=== PATIENT | female | born 1975 | race African-American/Black ===

== ENCOUNTER → 2016-09-26 | Outpatient (CLI) | payer BC ==
[2016-09-26 12:10] LABS: HEMATOCRIT 36.6 % (36.0-47.0); HEMOGLOBIN 11.5 g/dL (12.0-15.5); HGB HCT DIFFERENCE -2.1; MEAN CORPUSCULAR HEMOGLOBIN 24.2 pg (27.0-33.4); MEAN CORPUSCULAR HGB CONC 31.4 g/dL (32.0-36.0); MEAN CORPUSCULAR VOLUME 77 fl (80-97); RED BLOOD COUNT 4.75 10^6/uL (3.72-5.28); RED CELL DISTRIBUTION WIDTH 16.4 % (11.5-14.0); WHITE BLOOD COUNT 6.7 10^3/uL (4.0-10.5)
[2016-09-26 12:30] LABS: ANION GAP 10 (5-19); BLOOD UREA NITROGEN 20 mg/dL (7-20); CALCIUM 9.8 mg/dL (8.4-10.2); CARBON DIOXIDE 25 mmol/L (22-30); CHLORIDE 107 mmol/L (98-107); CREATININE RESULT 0.81 mg/dL (0.52-1.25); GLUCOSE 129 mg/dL (75-110); POTASSIUM 4.6 mmol/L (3.6-5.0)
== END ==
LOC: OD 10:58
PROVIDERS: ATTEND Physician Assistant Surgical
DX: K57.32 Diverticulitis of large intestine without perforation or abscess without bleeding (principal); R10.32 Left lower quadrant pain
CPT/HCPCS: 36415; 80048; 85027

== ENCOUNTER → 2016-09-29 | Outpatient (CLI) | payer BC ==
--- NOTE | 2016-09-29 11:57 | RADIOLOGY REPORT (SQ) ---
EXAM DESCRIPTION: CT ABD/PELVIS ORAL ONLY COMPLETED DATE/TIME: 09/29/2016 10:00 am REASON FOR STUDY: LLQ PAIN/NAUSEA WITH VOMITING/DIVERTICULITIS OF LARGE INTESTINE WITHOUT PER K57.32 DVTRCLI OF LG INT W/O PERFORATION OR ABSCESS W/O BLEE R10.32 LEFT LOWER QUADRANT PAIN R11.2 NAUSE A WITH VOMITING, UNSPECIFIED COMPARISON: None. TECHNIQUE: CT scan of the abdomen and pelvis performed without intravenous contrast. Patient drank oral contrast Images reviewed with lung, soft tissue, and bone windows. Reconstructed coronal and sagittal MPR imag es reviewed. All images stored on PACS. All CT scanners at this facility use dose modulation, iterative reconstruction, and/or weight based d osing when appropriate to reduce radiation dose to as low as reasonably achievable (ALARA). [facility]: Dose Right [facility]: CareDose [facility]: Dose Right [facility]: Teradose 4D [facility]: [employer] RADIATION DOSE: Up-to-date CT equipment and radiation dose reduction techniques were employed. CTDIv ol: 31.6 mGy. DLP: 1879 mGy-cm.mGy. LIMITATIONS: Morbid obesity FINDINGS: LOWER CHEST: No significant findings. No nodules or infiltrates. NON-CONTRASTED LIVER, SPLEEN, ADRENALS: Evaluation limited by lack of IV contrast. No identified sign ificant masses. PANCREAS: No masses. No peripancreatic inflammatory changes. GALLBLADDER: Surgically absent. RIGHT KIDNEY AND URETER: No suspicious masses. Assessment limited by lack of IV contrast. No signif icant calcifications. No hydronephrosis or hydroureter. LEFT KIDNEY AND URETER: No suspicious masses. Assessment limited by lack of IV contrast. No signifi cant calcifications. No hydronephrosis or hydroureter. AORTA AND RETROPERITONEUM: No aneurysm. No retroperitoneal masses or adenopathy. BOWEL AND PERITONEAL CAVITY: No obvious masses or inflammatory changes. No free fluid. Patient drank oral contrast. This demonstrates a small hiatal hernia, and postsurgical changes from gastric bypas s. Oral contrast flows into the small bowel anastomosis to the stomach fundal pouch. No leakage of contrast into the [place] stomach or duodenum. Patient does have few sigmoid diverticuli. No CT evid ence of acute diverticulitis. APPENDIX: Normal. PELVIS, BLADDER, AND ABDOMINAL WALL:No abnormal masses. No free fluid. Bladder normal. BONES: No significant findings. OTHER: No other significant finding. IMPRESSION: POST GASTRIC BYPASS AND CHOLECYSTECTOMY. NO SIGNIFICANT OR ACUTE PROCESS IN THE ABDOMEN OR PELVIS. TECHNICAL DOCUMENTATION: JOB ID: [id number] Quality ID # [id number]: Final reports with documentation of one or more dose reduction techniques (e.g., Au tomated exposure control, adjustment of the mA and/or kV according to patient size, use of iterative reconstruction technique) 2010 [employer]- All Rights Reserved
== END ==
LOC: RAD 09:38
PROVIDERS: ATTEND Internal Medicine Gastroenterology
DX: K57.32 Diverticulitis of large intestine without perforation or abscess without bleeding (principal); R10.32 Left lower quadrant pain; R11.2 Nausea with vomiting, unspecified
CPT/HCPCS: 74176

== ENCOUNTER 2016-10-08 18:04 | Emergency (ER) | payer BC ==
[2016-10-08] MEDS ORDERED: NORMAL SALINE 1000 ML 1,000 ML IV ONE (21:07)
[2016-10-08] MEDS ORDERED: MORPHINE SULFATE 10 MG/ML INJ IV ONE (21:07)
[2016-10-08] MEDS ORDERED: ONDANSETRON HCL INJ/PF 4 MG/2 ML SDV IV ONE (21:07)
--- NOTE | 2016-10-08 21:08 | ER Document Report ---
ED GI/ - General Chief Complaint: Abdominal Pain Stated Complaint: abd pain Time Seen by Provider: 10/08/16 20:58 Notes: Patient is a 41-year-old female who comes emergency department for chief complaint of left lower abdominal pain, she states she has been dealing with this for about 3 weeks, it improved after taking amoxicillin, she finished amoxicillin last and then symptoms began to worsen again. She states today she threw up 3 times, she had a loose nonbloody bowel movement today, she had a hard bowel movement yesterday. She denies any fevers. She states she was being treated for diverticulitis. She had normal endoscopy and colonoscopy in March. Past medical history of morbid obesity, gastric bypass, , hypertension, GERD, hypothyroidism. She sees gastroenterology Dr. Stevens. TRAVEL OUTSIDE OF THE [place] IN LAST 30 DAYS: No Past Medical History - General Information source: Patient - Social History Smoking Status: Never Smoker Drug Abuse: None Lives with: Family Family History: Reviewed & Not Pertinent - Past Medical History Cardiac Medical History: Reports: Hx Hypertension Endocrine Medical History: Reports: Hx Hypothyroidism GI Medical History: Reports: Hx Gastroesophageal Reflux Disease Past Surgical History: Reports: Hx Cholecystectomy, Hx Gastric Bypass Surgery, Hx Gynecologic Surgery - Immunizations Hx Diphtheria, Pertussis, Tetanus Vaccination: Yes Review of Systems - Review of Systems Constitutional: No symptoms reported EENT: No symptoms reported Cardiovascular: No symptoms reported Respiratory: No symptoms reported Gastrointestinal: See HPI Genitourinary: No symptoms reported Female Genitourinary: No symptoms reported Musculoskeletal: No symptoms reported Skin: No symptoms reported Hematologic/Lymphatic: No symptoms reported Neurological/Psychological: No symptoms reported Physical Exam - Vital signs Vitals: Pulse Ox 94 10/08/16 20:58 Interpretation: Normal - General General appearance: Appears well, Alert In distress: None - no evidence of distress - HEENT Head: Normocephalic, Atraumatic Eyes: Normal Conjunctiva: Normal Extraocular movements intact: Yes Eyelashes: Normal Pupils: PERRL Nasal: Normal Mouth/Lips: Normal Mucous membranes: Normal Pharynx: Normal Neck: Normal - Respiratory Respiratory status: No respiratory distress Chest status: Nontender Breath sounds: Normal Chest palpation: Normal - Cardiovascular Rhythm: Regular Heart sounds: Normal auscultation Murmur: No - Abdominal Inspection: Normal Distension: No distension Bowel sounds: Normal Tenderness: Tender - tender in LLQ, lower/pelvic area unremarkable, remaining abdomen unremarkable. No guarding or severe tenderness. Organomegaly: No organomegaly - Back Back: Normal, Nontender. No: Tender, CVA tenderness - Extremities General upper extremity: Normal inspection, Nontender, Normal ROM, Normal strength General lower extremity: Normal inspection, Nontender, Normal ROM, Normal strength - Neurological Neuro grossly intact: Yes Cognition: Normal Orientation: AAOx4 [place] Coma Scale Eye Opening: Spontaneous [place] Coma Scale Verbal: Oriented [place]en Coma Scale Motor: Obeys Commands [place] Coma Scale Total: 15 Speech: Normal Motor strength normal: LUE, RUE, LLE, RLE Sensory: Normal - Psychological Associated symptoms: Normal affect, Normal mood - Skin Skin Temperature: Warm Skin Moisture: Dry Skin Color: Normal Course - Re-evaluation Re-evalutation: CT of the abdomen and pelvis with oral and IV contrast on 09/29/2016 shows diverticulosis without evidence of diverticulitis, hiatal hernia, and postsurgical changes after gastric bypass and also cholecystectomy. However she does not have any upper abdominal pain, on exam she only has pain in the left lower abdomen. She is nontoxic in appearance, no tachycardia or hypotension, no fever. Remaining examination is unremarkable. No leukocytosis, unremarkable CBC, chemistry, and urinalysis. Patient remains well-appearing. I did discuss with patient. CAT scan will not be repeated today, however patient will be treated with Augmentin for suspected diverticulitis based on her examination. Acute abdominal series with questionable retained stool, no obstructive findings, no free air. Patient will be given a stool softener along with just a few pain medicine which patient was instructed to only take if needed. I discussed return precautions in detail, patient is also instructed to follow-up with her manager [employer] in the next 2-3 days. Patient states understanding and agreement with plan. - Vital Signs Vital signs: Temp Pulse Resp BP Pulse Ox 126/79 H 100 10/09/16 00:00 10/09/16 00:15 - Laboratory Result Diagrams: 10/08/16 21:15 10/08/16 21:15 Laboratory results interpreted by me: 10/08/16 10/08/16 21:15 21:15 Hgb 11.9 L MCV 78 L MCH 24.6 L MCHC 31.6 L RDW 16.7 H AST 41 H Discharge - Discharge Clinical Impression: Left lower quadrant pain Condition: Stable Disposition: HOME, SELF-CARE Additional Instructions: Your symptoms and exam to indicate diverticulitis, however your workup and evaluation does not suggest that you have an abscess or acute surgical abnormality. Please take the Augmentin antibiotic as prescribed, take stool softener, take the pain medicine and nausea medicine only if needed. Follow-up with your manager [facility] in the next 2-3 days. Return to the emergency department if you develop any concerning symptoms including fever, vomiting, bloody bowel movements, severe pain, or any other concerning symptoms. Prescriptions: Amox Tr/Potassium Clavulanate [Augmentin 875-125 Tablet] 1 tab PO BID 7 Days tablet Docusate Sodium [Colace 100 mg Capsule] 100 mg PO DAILY #30 capsule Hydrocodone/Acetaminophen [[place] 5-325 mg Tablet] 1 - 2 tab PO ASDIR #8 tablet Promethazine HCl [Phenergan 25 mg Tablet] 1 - 2 tab PO Q6H PRN #15 tablet PRN Reason: Referrals: ANTONIETA STEVENS MD [ACTIVE STAFF] - 10/11/16
[2016-10-08 21:31] LABS: ABSOLUTE BASOPHILS # (AUTO) 0.1 10^3/uL (0.0-0.2); ABSOLUTE EOSINOPHILS # (AUTO) 0.1 10^3/uL (0.0-0.6); ABSOLUTE LYMPHOCYTES (AUTO) 2.3 10^3/uL (0.5-4.7); ABSOLUTE MONOCYTES (AUTO) 0.7 10^3/uL (0.1-1.4); ABSOLUTE NEUT (AUTO) 3.9 10^3/uL (1.7-8.2); BASOPHILS % (AUTO) 0.8 % (0-2); EOSINOPHILS % (AUTO) 1.7 % (0-6); HEMATOCRIT 37.8 % (36.0-47.0); HEMOGLOBIN 11.9 g/dL (12.0-15.5); HGB HCT DIFFERENCE -2.1; MEAN CORPUSCULAR HEMOGLOBIN 24.6 pg (27.0-33.4); MEAN CORPUSCULAR HGB CONC 31.6 g/dL (32.0-36.0); MEAN CORPUSCULAR VOLUME 78 fl (80-97); MONOCYTES % (AUTO) 9.4 % (3-13); RED BLOOD COUNT 4.86 10^6/uL (3.72-5.28); RED CELL DISTRIBUTION WIDTH 16.7 % (11.5-14.0); SEGMENTED NEUTROPHILS % (AUTO) 55.1 % (42-78)
[2016-10-08 21:56] LABS: ALANINE AMINOTRANSFERASE 44 U/L (9-52); ALBUMIN 4.4 g/dL (3.5-5.0); ALKALINE PHOSPHATASE 98 U/L (38-126); ANION GAP 9 (5-19); ASPARTATE AMINO TRANSFERASE 41 U/L (14-36); BILIRUBIN,DIRECT 0.4 mg/dL (0.0-0.4); BILIRUBIN,TOTAL 0.4 mg/dL (0.2-1.3); BLOOD UREA NITROGEN 17 mg/dL (7-20); CALCIUM 9.7 mg/dL (8.4-10.2); CARBON DIOXIDE 29 mmol/L (22-30); CHLORIDE 104 mmol/L (98-107); CREATININE RESULT 0.86 mg/dL (0.52-1.25); GLUCOSE 103 mg/dL (75-110); POTASSIUM 4.2 mmol/L (3.6-5.0); SODIUM 142.3 mmol/L (137-145); TOTAL PROTEIN 8.2 g/dL (6.3-8.2)
[2016-10-08 21:59] LABS: APPEARANCE,URINE SLIGHTLY-CLOUDY; BILIRUBIN,URINE NEGATIVE (NEGATIVE); CALCIUM OXALATE CRYSTALS,URINE TOO NUMEROUS TO CNT /HPF; GLUCOSE, URINE NEGATIVE (NEGATIVE); KETONES,URINE NEGATIVE (NEGATIVE); LEUKOCYTE ESTERASE,URINE NEGATIVE (NEGATIVE); NITRITE,URINE NEGATIVE (NEGATIVE); PROTEIN,URINE NEGATIVE (NEGATIVE); URINE SPECIFIC GRAVITY 1.026; UROBILINOGEN,URINE NEGATIVE mg/dL (<2.0)
--- NOTE | 2016-10-08 23:44 | RADIOLOGY REPORT (SQ) ---
EXAM DESCRIPTION: ACUTE ABDOMEN SERIES COMPLETED DATE/TIME: 10/08/2016 11:33 pm REASON FOR STUDY: vomiting, abd pain, hx abd surgery COMPARISON: None. NUMBER OF VIEWS: Three views. TECHNIQUE: PA chest, supine abdomen and upright/decubitus abdomen radiographic images acquired. LIMITATIONS: None. FINDINGS: CHEST: Lungs clear of infiltrates. FREE AIR: None. No abnormal gas collections. BOWEL GAS PATTERN: Nonspecific pattern with a few scattered air fluid levels without significant dila tation of bowel loops. CALCIFICATIONS: No suspicious calcifications. HARDWARE: None in the abdomen. SOFT TISSUES: No gross mass or suggestion of organomegaly. BONES: No acute fracture. No worrisome bone lesions. OTHER: No other significant finding. IMPRESSION: NONSPECIFIC BOWEL GAS PATTERN. TECHNICAL DOCUMENTATION: JOB ID: [id number] [email or web address]- All Rights Reserved
[2016-10-09 00:16] VITALS: BP 126/79
[2016-10-09] MEDS ORDERED: HYDROCODONE/ACETAMINOPHEN 5-325 MG 6 TAB/DSPK PO PRN (00:20)
[2016-10-09] MEDS ORDERED: AMOXICILLIN TR/POT CLAVULANATE 500-125 MG TAB PO ONE (00:20)
== END 2016-10-09 00:39 | disposition home or self-care (01) ==
LOC: ER 18:04
DX: R10.32 Left lower quadrant pain (principal); I10 Essential (primary) hypertension; K21.9 Gastro-esophageal reflux disease without esophagitis; E03.9 Hypothyroidism, unspecified; Z98.84 Bariatric surgery status; Z90.49 Acquired absence of other specified parts of digestive tract
CPT/HCPCS: 99285; 96361; 96374; 96375; 36415; 85025; 81025; 80053; 81001; 74022; J2270; J2405; J7030

== ENCOUNTER 2016-11-18 21:31 | Emergency (ER) | payer BC ==
[2016-11-18 21:58] VITALS: BP 162/111
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
[2016-11-19 00:59] LABS: APPEARANCE,URINE SLIGHTLY-CLOUDY; BILIRUBIN,URINE NEGATIVE (NEGATIVE); GLUCOSE, URINE NEGATIVE (NEGATIVE); KETONES,URINE NEGATIVE (NEGATIVE); LEUKOCYTE ESTERASE,URINE NEGATIVE (NEGATIVE); NITRITE,URINE NEGATIVE (NEGATIVE); PROTEIN,URINE NEGATIVE (NEGATIVE); URINE SPECIFIC GRAVITY 1.025
[2016-11-19] MEDS ORDERED: HYDROCODONE/ACETAMINOPHEN 5-325 MG 6 TAB/DSPK PO PRN (01:13)
[2016-11-19] MEDS ORDERED: CEPHALEXIN 500 MG CAPSULE PO ONE (01:26)
== END 2016-11-19 01:35 | disposition home or self-care (01) ==
LOC: ER 21:31
DX: N30.00 Acute cystitis without hematuria (principal); M54.5 Low back pain
CPT/HCPCS: 81001; 81025; 87086; 87088; 87186; 99283

== ENCOUNTER 2017-02-20 13:16 | Emergency (ER) | payer BC ==
[2017-02-20] MEDS ORDERED: KETOROLAC TROMETHAMINE 60 MG/2 ML SDV IM ONE (14:25)
--- NOTE | 2017-02-20 14:28 | ER Document Report ---
HPI - HPI Patient complains to provider of: Right knee contusion Onset: Yesterday Onset/Duration: Sudden Quality of pain: Throbbing Severity: Moderate Pain Level: 4 Context: Patient states she slipped on ice landing on her left knee last night. Complains of pain with walking. Associated Symptoms: None Exacerbated by: Movement, Walking Relieved by: Denies Similar symptoms previously: No Recently seen / treated by doctor: No - ROS ROS below otherwise negative: Yes Systems Reviewed and Negative: Yes All other systems reviewed and negative - CONSTITUTIONAL Constitutional: DENIES: Fever - EENT EENT: DENIES: Congestion - NEURO Neurology: DENIES: Headache - CARDIOVASCULAR Cardiovascular: DENIES: Chest pain - RESPIRATORY Respiratory: DENIES: Trouble Breathing - GASTROINTESTINAL Gastrointestinal: DENIES: Abdominal Pain - MUSCULOSKELETAL Musculoskeletal: REPORTS: Extremity pain - DERM Skin Color: Normal Past Medical History - General Information source: Patient - Social History Smoking Status: Never Smoker Chew tobacco use (# tins/day): No Frequency of alcohol use: Rare Drug Abuse: None Lives with: Family Family History: Reviewed & Not Pertinent Patient has suicidal ideation: No Patient has homicidal ideation: No - Past Medical History Cardiac Medical History: Reports: Hx Hypertension Endocrine Medical History: Reports: Hx Hypothyroidism GI Medical History: Reports: Hx Gastroesophageal Reflux Disease Past Surgical History: Reports: Hx Abdominal Surgery - gastic bypass, Hx Section, Hx Cholecystectomy, Hx Gastric Bypass Surgery, Hx Gynecologic Surgery - Immunizations Hx Diphtheria, Pertussis, Tetanus Vaccination: Yes Vertical Provider Document - CONSTITUTIONAL Agree With Documented VS: Yes Exam Limitations: No Limitations General Appearance: WD/WN, No Apparent Distress - INFECTION CONTROL TRAVEL OUTSIDE OF THE [place] IN LAST 30 DAYS: No - HEENT HEENT: Atraumatic, Normocephalic - RESPIRATORY Respiratory: Breath Sounds Normal, No Respiratory Distress O2 Sat by Pulse Oximetry: 97 - CARDIOVASCULAR Cardiovascular: Regular Rate, Regular Rhythm - MUSCULOSKELETAL/EXTREMETIES Musculoskeletal/Extremeties: Tender, No Edema. negative: Eccymosis Notes: Tender medial and posterior left knee. No obvious swelling, no bruising noted. Pain reproduced with palpation and range of motion. - NEURO Level of Consciousness: Awake, Alert, Appropriate - DERM Integumentary: Warm, Dry Course - Re-evaluation Re-evalutation: 02/20/17 15:46 X-ray showed no fracture, patient does have osteoarthritis. This was discussed with the patient. - Vital Signs Vital signs: Temp Pulse Resp BP Pulse Ox 98.1 F 80 20 143/90 H 97 02/20/17 13:24 02/20/17 13:24 02/20/17 13:24 02/20/17 13:24 02/20/17 13:24 Procedures - Immobilization Left Knee Pre-Proc Neuro Vasc Exam: Normal Immobilizer type: Yemi wrap, Crutches Performed by: PCT Post-Proc Neuro Vasc Exam: Normal Alignment checked and good: Yes Discharge - Discharge Clinical Impression: Contusion of left knee Qualifiers: Encounter type: initial encounter Qualified Code(s): S80.02XA - Contusion of left knee, initial encounter Condition: Good Disposition: HOME, SELF-CARE Instructions: Use of Crutches ([facility]), Ice & Elevation ([facility]) Additional Instructions: Ibuprofen 3 times a day as needed for pain Ice and elevate extremity Follow-up with your doctor next week for recheck Return as needed Prescriptions: Ibuprofen 800 mg PO TID PRN #20 tablet PRN Reason: Tramadol HCl 50 mg PO TID PRN #10 tablet PRN Reason:
--- NOTE | 2017-02-20 15:27 | RADIOLOGY REPORT (SQ) ---
EXAM DESCRIPTION: KNEE LEFT 4 VIEW COMPLETED DATE/TIME: 02/20/2017 3:03 pm REASON FOR STUDY: INJURY COMPARISON: None. NUMBER OF VIEWS: Four views. TECHNIQUE: AP, lateral, and both oblique radiographic images acquired of the left knee. LIMITATIONS: Obese patient FINDINGS: MINERALIZATION: Normal. BONES: No acute fracture or dislocation. No worrisome bone lesions. JOINT: No gross knee joint effusion. Advanced tricompartment osteoarthritis with joint space narrowi ng, bony spurring, and articular surface sclerosis SOFT TISSUES: No soft tissue swelling. No radio-opaque foreign body. OTHER: No other significant finding. IMPRESSION: Tricompartment advanced osteoarthritis TECHNICAL DOCUMENTATION: JOB ID: [id number] [email or web address] All Rights Reserved
[2017-02-20 16:21] VITALS: BP 147/104
== END 2017-02-20 16:21 | disposition home or self-care (01) ==
LOC: ER 13:16
DX: S80.01XA Contusion of right knee, initial encounter (principal); W00.0XXA Fall on same level due to ice and snow, initial encounter
CPT/HCPCS: 99283; 96372; 73562; J1885

== ENCOUNTER 2017-04-15 02:53 | Emergency (ER) | payer BC ==
[2017-04-15] MEDS ORDERED: ONDANSETRON HCL INJ/PF 4 MG/2 ML SDV IV ONE (03:13)
[2017-04-15 03:26] LABS: HEMATOCRIT 38.8 % (36.0-47.0); HEMOGLOBIN 12.1 g/dL (12.0-15.5); MEAN CORPUSCULAR HEMOGLOBIN 24.3 pg (27.0-33.4); MEAN CORPUSCULAR HGB CONC 31.2 g/dL (32.0-36.0); MEAN CORPUSCULAR VOLUME 78 fl (80-97); PLATELET COUNT 448 10^3/uL (150-450); WHITE BLOOD COUNT 10.1 10^3/uL (4.0-10.5)
--- NOTE | 2017-04-15 03:28 | ER Document Report ---
ED General - General Stated Complaint: DIZZINESS Time Seen by Provider: 04/15/17 03:08 TRAVEL OUTSIDE OF THE [place] IN LAST 30 DAYS: No - HPI Notes: Patient is a 41-year-old female with a history of hypertension, morbid obesity, recent duodenal switch surgery (bariatric surgery) who presents to the ED complaining of shortness of breath, dyspnea, chest tightness that began last evening. Patient states that her duodenal switch surgery to place 5 days ago. Patient states that her symptoms started suddenly. Patient also has had right leg pain. Patient was drinking without difficulties otherwise, but has been on a liquid diet. She has been urinating normally and having normal bowel movements. Patient states that she is currently on Lovenox status post surgery. She denies any drug allergies. Patient denies any smoking, hormone replacement, distance travel, previous DVT/PE, or other significant cardiac history. Denies any headache, fever, neck pain, URI, sore throat, syncope, cough, abdominal pain, nausea/vomiting/diarrhea, urinary retention, dysuria, hematuria, back pain, loss of control of bowel or bladder, numbness/tingling, saddle anesthesia, muscle paralysis/weakness, or rash. - Related Data Allergies/Adverse Reactions: No Known Allergies Allergy (Unverified 02/20/17 13:17) Past Medical History - Social History Smoking Status: Never Smoker Family History: Reviewed & Not Pertinent - Past Medical History Cardiac Medical History: Reports: Hx Hypertension Endocrine Medical History: Reports: Hx Hypothyroidism Renal/ Medical History: Denies: Hx Peritoneal Dialysis GI Medical History: Reports: Hx Gastroesophageal Reflux Disease Past Surgical History: Reports: Hx Abdominal Surgery - gastic bypass, Hx Section, Hx Cholecystectomy, Hx Gastric Bypass Surgery, Hx Gynecologic Surgery - Immunizations Hx Diphtheria, Pertussis, Tetanus Vaccination: Yes Review of Systems - Review of Systems -: Yes All other systems reviewed and negative Physical Exam - Vital signs Vitals: Pulse Ox 98 04/15/17 03:02 - Notes Notes: PHYSICAL EXAMINATION: GENERAL: Well-appearing, well-nourished and in no mild resp distress. A&Ox4. Answers questions appropriately. Morbidly obese. HEAD: Atraumatic, normocephalic. EYES: Pupils equal round and reactive to light, extraocular movements intact, sclera anicteric, conjunctiva are normal. ENT: Nares patent and without discharge. oropharynx clear without exudates. No tonsilar hypertrophy or erythema. Moist mucous membranes. NECK: Normal range of motion, supple without lymphadenopathy LUNGS: Breath sounds clear to auscultation bilaterally and equal. No wheezes rales or rhonchi. + tachypneic HEART: Tachycardic without murmurs, rubs, gallops. ABDOMEN: Soft, nondistended abdomen. No guarding, no rebound. No masses appreciated. Normal bowel sounds present. No CVA tenderness bilaterally. + mild epigastric tenderness. Musculoskeletal: FROM to passive/active. Strength 5+/5. + tenderness to the rt calf. Extremities: Trace pitting edema b/l. Peripheral pulses 2+. Capillary refill less than 3 seconds. NEUROLOGICAL: Cranial nerves grossly intact. Normal speech. Normal sensory, motor exams PSYCH: mildly anxious, normal affect. SKIN: Warm, Dry, normal turgor, no rashes or lesions noted. Course - Re-evaluation Re-evalutation: 04/15/17 03:30 Pt presenting in resp distress, tachycardic, tachypneic. High suspicion for PE. CTA of the chest ordered along with cardiac work up. Dr. Shultz was also consulted who eval'd the patient and is in agreement with plan thus far. 04/15/17 06:55 CTA inconclusive. Labs acceptable at this time. Dr. Shultz reviewed with Ms Polina PETERSON at [facility]. After review with her as well as our hospitalist, decision was made to transfer. [facility] accepted transfer. Pt has no new concerns or complaints. Vitals have remained stable at this time with a HR of 108, RR 24, O2 96% on 4L NC, and BP of 128/73. Pt stable for discharge. - Vital Signs Vital signs: Temp Pulse Resp BP Pulse Ox 98.5 F 30 H 132/62 H 97 04/15/17 06:31 04/15/17 07:39 04/15/17 07:39 04/15/17 07:39 - Laboratory Result Diagrams: 04/15/17 02:46 04/15/17 04:03 Laboratory results interpreted by me: 04/15/17 04/15/17 02:46 04:03 MCV 78 L MCH 24.3 L MCHC 31.2 L RDW 16.0 H Seg Neuts % (Manual) 87 H Band Neutrophils % 8 H Lymphocytes % (Manual) 4 L Monocytes % (Manual) 0 L Abs Neuts (Manual) 9.6 H Abs Lymphs (Manual) 0.4 L Abs Monocytes (Manual) 0.0 L Potassium 3.1 L Glucose 154 H AST 112 H ALT 68 H Discharge - Discharge Clinical Impression: Sinus tachycardia, Hypoxia Dyspnea Qualifiers: Dyspnea type: unspecified Qualified Code(s): R06.00 - Dyspnea, unspecified Condition: Serious Disposition: OTHER
--- NOTE | 2017-04-15 03:28 | ER Document Report ---
Doctor's Note Notes: 04/15/17 03:27 Patient was initially seen by the physician therapy administrative assistant, Bella faith. Patient is a 41-year-old female presents with complaint of difficulty breathing weakness that started suddenly tonight. She had a form of bariatric surgery on Sunday at [facility] in [place]. She was recently on Lovenox. She said she suddenly started feeling shortness of breath and weakness tonight. She currently is tachycardic. Blood pressure is normal. She is requiring supplemental oxygen. Patient denies previous history of DVT or PE. She has no other complaints at this time. Will sending patient straight to CT scan to for evidence of pulmonary embolism as suspicion for PE is extremely high. 04/15/17 05:33 04/15/17 06:18 Wilbert Sahu, physician therapy administrative assistant, initially spoke with [facility]. He spoke with the surgery PA, Alicia Fish. There was initially some confusion in that Mr. Sahu asked for a consult on what anticoagulation to give the patient. My concern was that I felt the patient most likely would require transport being that we do not have bariatric surgery care here and if the patient did start having any bleeding adverse events from being anticoagulated that I feel she would be much safer and better served at a facility that would have the capabilities to handle that complication. Being that her surgery was just recently done there I felt that it would be appropriate to transfer her there. I therefore spoke with Alicia Fish. I informed of my concerns. Also informed her that her CT scan was inadequate in showing whether or not the patient has a PE or not. Currently her lung becerra are clear. The lung parenchyma on the CT scan was normal-appearing. VQ scan would unlikey be an adequate study based on the patient's size. She is tachycardic, tachypnea, and hypoxemic post surgery all pointing to the likelihood that this is a pulmonary emboli. She is currently 94% on 4 L of oxygen. I therefore informed Mrs. Fish that my suspicion for PE is very very high. She said that she had spoken with her attending and he did not feel that the need to accept the patient because she does not have a current surgical complication. I then asked to speak with the hospitalist at the facility so that the patient could still be transferred to the facility. The transfer line coordinator then explained that by the hospital's rule the patient would no matter what have to go to the surgical service and that I therefore cannot speak with the hospitalist. I therefore informed Ms. Fish in the transfer center that I would be willing to speak with our hospitalist to see if they would feel comfortable keeping the patient in our facility or if they have the same concerns that I do about potential complications of her being on high-dose Lovenox with a recent abdominal surgery and our inability to control any potential bleeding complications at my facility. I spoke with Dr. Jim Douglas , hospitalist. I reviewed the patient's history as well as patient's laboratory findings with him. He has the same concern that we do not have bariatric surgery at our facility, we do not have gastroenterology, and we therefore do not have the ability to properly treat the potential of bleeding complications that could potentially arise me at the patient recently had bariatric surgery and will be on high-dose Lovenox. He recommends transfer as well. I did call back and speak with Ms. Alicia Fish again and she now accepts the patient on behalf of Dr. Orta. She still recommends Lovenox treatment. Patient is 190 kg. I did look up to see if there is a max dose being that the patient weigh's so much. The max dose for the Lovenox is 150 mg. I therefore have ordered 150 mg of subcutaneous Lovenox every 12 hours to be given to the patient until she is transferred. Dictation of this chart was performed using voice recognition software; therefore, there may be some unintended grammatical errors.
[2017-04-15 03:54] LABS: ABSOLUTE LYMPHOCYTES# (MANUAL) 0.4 10^3/uL (0.5-4.7); ABSOLUTE NEUTROPHILS# (MANUAL) 9.6 10^3/uL (1.7-8.2); BAND NEUTROPHILS % (MANUAL) 8 % (3-5); BASOPHILS % (MANUAL) 1 % (0-2); EOSINOPHILS % (MANUAL) 0 % (0-6); LYMPHOCYTES % (MANUAL) 4 % (13-45); MONOCYTES % (MANUAL) 0 % (3-13); SEGMENTED NEUTROPHILS % (MAN) 87 % (42-78); TOTAL CELLS COUNTED 100
[2017-04-15 03:58] LABS: PLATELET COMMENT ADEQUATE
[2017-04-15 03:59] LABS: ANISOCYTOSIS 1+; BURR CELLS SLIGHT; HYPOCHROMASIA 1+; OVALOCYTES SLIGHT; POIKILOCYTOSIS 1+; POLYCHROMASIA SLIGHT; SCHISTOCYTES SLIGHT; TOXIC GRANULATION SLIGHT; TOXIC VACUOLATION PRESENT
[2017-04-15 04:36] LABS: ALANINE AMINOTRANSFERASE 68 U/L (9-52); ALBUMIN 3.8 g/dL (3.5-5.0); ALKALINE PHOSPHATASE 69 U/L (38-126); ANION GAP 11 (5-19); ASPARTATE AMINO TRANSFERASE 112 U/L (14-36); BILIRUBIN,DIRECT 0.2 mg/dL (0.0-0.4); BILIRUBIN,TOTAL 0.4 mg/dL (0.2-1.3); BLOOD UREA NITROGEN 10 mg/dL (7-20); CALCIUM 9.3 mg/dL (8.4-10.2); CARBON DIOXIDE 25 mmol/L (22-30); CHLORIDE 103 mmol/L (98-107); CREATINE KINASE 40 U/L (30-135); GLUCOSE 154 mg/dL (75-110); POTASSIUM 3.1 mmol/L (3.6-5.0); TOTAL PROTEIN 6.6 g/dL (6.3-8.2)
--- NOTE | 2017-04-15 04:40 | RADIOLOGY REPORT (SQ) ---
EXAM DESCRIPTION: CTA CHEST CLINICAL HISTORY: 41 years Female, sob, tachycardic COMPARISON: None. TECHNIQUE: 90 mL Isovue-370 IV and oral contrast. Multiplanar reformat. This exam was performed according to our departmental dose-optimization program, which includes automated exposure control, adjustment of the mA and/or kV according to patient size and/or use of iterative reconstruction technique. Findings: There is inadequate enhancement of the pulmonary arterial system measuring 91 HU. Consider repeat, alternative, or surveillance investigation as clinically warranted. No evidence of right ventricular strain. Stomach and cholecystectomy clips. Minimal atelectasis of the right middle lobe and right lower lobe. Nonspecific metallic focus/hardware seen at the IVC on last transaxial image. Inferior neck, axillae, mediastinum, lungs, airway, lymphatics, heart, vasculature, upper abdomen, and musculoskeleton appear otherwise unremarkable. Impression: Nondiagnostic evaluation for pulmonary embolus.There is inadequate enhancement of the pulmonary arterial system. Consider repeat, alternative, or surveillance investigation as clinically warranted. Else, unremarkable.
[2017-04-15 04:48] LABS: NT PRO BNP 84 pg/mL (<125)
[2017-04-15 04:49] LABS: CREATINE KINASE MB < 0.22 ng/mL (<4.55); TROPONIN I < 0.012 ng/mL
[2017-04-15] MEDS ORDERED: ENOXAPARIN SODIUM INJ 150 MG/1 ML DISP.SYRIN SUBCUT SCH (06:15)
[2017-04-15 07:39] VITALS: BP 132/62
--- NOTE | 2017-04-15 07:52 | EKG REPORT ---
SEVERITY:- OTHERWISE NORMAL ECG - SINUS TACHYCARDIA : Confirmed by: Mark Potter MD 15-Apr-2017 07:51:29
[2017-04-15] MEDS ORDERED: FENTANYL CITRATE INJ/PF 100 MCG/2 ML AMPUL IV ONE (07:56)
== END 2017-04-15 07:46 | disposition other institution (70) ==
LOC: ER 02:53
DX: R00.0 Tachycardia, unspecified (principal); R09.02 Hypoxemia; R53.1 Weakness
CPT/HCPCS: 93005; 99285; 96372; 36415; 82553; 82550; 84703; 85025; 80053; 84484; 83880; 71275; 93010; J3490; J3010

== ENCOUNTER 2017-10-08 15:11 | Emergency (ER) | payer BC ==
[2017-10-08] MEDS ORDERED: ALBUTEROL SULFATE 0.083% NEB 2.5 MG/3 ML AMPUL NEB ONE (17:08)
--- NOTE | 2017-10-08 17:08 | ER Document Report ---
ED Medical Screen (RME) - General Chief Complaint: Asthma Exacerbation Stated Complaint: DIFFICULTY BREATHING Time Seen by Provider: 10/08/17 17:04 Notes: 42-year-old female to the emergency department for evaluation of shortness of breath, cough, wheeze. Patient apparently has history of asthma. Was recently operated on in March for gastric bypass. Was seen in the emergency department in April and transferred back to [facility] for possible pulmonary embolism. Patient states that she was on blood thinners for 2 months. Has not been on blood thinners now for approximately 2 months though. Has been having increased shortness of breath, cough, wheeze for the last couple of days. I have greeted and performed a rapid initial assessment of this patient. A comprehensive ED assessment and evaluation of the patient, analysis of test results and completion of the medical decision making process will be conducted by additional ED providers. TRAVEL OUTSIDE OF THE [place] IN LAST 30 DAYS: No - Related Data Allergies/Adverse Reactions: No Known Allergies Allergy (Unverified 02/20/17 13:17) Past Medical History - Past Medical History Cardiac Medical History: Reports: Hx Hypertension Endocrine Medical History: Reports: Hx Hypothyroidism Renal/ Medical History: Denies: Hx Peritoneal Dialysis GI Medical History: Reports: Hx Gastroesophageal Reflux Disease Past Surgical History: Reports: Hx Abdominal Surgery - gastic bypass, Hx Section, Hx Cholecystectomy, Hx Gastric Bypass Surgery, Hx Gynecologic Surgery - Immunizations Hx Diphtheria, Pertussis, Tetanus Vaccination: Yes Physical Exam - Vital signs Vitals: Temp Pulse Resp BP Pulse Ox 99.1 F 86 20 184/88 H 98 10/08/17 15:19 10/08/17 15:19 10/08/17 15:19 10/08/17 15:19 10/08/17 15:19 Course - Vital Signs Vital signs: Temp Pulse Resp BP Pulse Ox 99.1 F 86 20 184/88 H 98 10/08/17 15:19 10/08/17 15:19 10/08/17 15:19 10/08/17 15:19 10/08/17 15:19
[2017-10-08] MEDS ORDERED: PREDNISONE 20 MG TABLET PO ONE (17:43)
--- NOTE | 2017-10-08 18:30 | RADIOLOGY REPORT (SQ) ---
EXAM DESCRIPTION: CHEST 2 VIEWS COMPLETED DATE/TIME: 10/08/2017 6:15 pm REASON FOR STUDY: sob, wheezing COMPARISON: None. TECHNIQUE: Frontal and lateral radiographic views of the chest acquired. NUMBER OF VIEWS: Two view. LIMITATIONS: None. FINDINGS: LUNGS AND PLEURA: No opacities, masses or pneumothorax. No pleural effusion. MEDIASTINUM AND HILAR STRUCTURES: No masses or contour abnormalities. HEART AND VASCULAR STRUCTURES: Heart normal size. No evidence for failure. BONES: No acute findings. HARDWARE: None in the chest. OTHER: No other significant finding. IMPRESSION: NO SIGNIFICANT RADIOGRAPHIC FINDING IN THE CHEST. TECHNICAL DOCUMENTATION: JOB ID: [id number] [place]-72 2010 [employer]- All Rights Reserved Reading location - IP/workstation name: [email or web address]
[2017-10-08 18:38] LABS: ABSOLUTE BASOPHILS # (AUTO) 0.1 10^3/uL (0.0-0.2); ABSOLUTE EOSINOPHILS # (AUTO) 0.1 10^3/uL (0.0-0.6); ABSOLUTE LYMPHOCYTES (AUTO) 2.3 10^3/uL (0.5-4.7); ABSOLUTE MONOCYTES (AUTO) 0.4 10^3/uL (0.1-1.4); ABSOLUTE NEUT (AUTO) 3.1 10^3/uL (1.7-8.2); HEMATOCRIT 36.9 % (36.0-47.0); HEMOGLOBIN 11.8 g/dL (12.0-15.5); LYMPHOCYTES % (AUTO) 37.8 % (13-45); MEAN CORPUSCULAR HEMOGLOBIN 25.9 pg (27.0-33.4); MEAN CORPUSCULAR VOLUME 81 fl (80-97); MONOCYTES % (AUTO) 7.1 % (3-13); PLATELET COUNT 333 10^3/uL (150-450); RED BLOOD COUNT 4.56 10^6/uL (3.72-5.28); RED CELL DISTRIBUTION WIDTH 15.3 % (11.5-14.0); SEGMENTED NEUTROPHILS % (AUTO) 52.1 % (42-78); TOTAL CELLS COUNTED % (AUTO) 100 %
[2017-10-08 18:45] LABS: INTERNATIONAL RATION (INR) 1.19; PROTHROMBIN TIME 15.7 SEC (11.4-15.4)
[2017-10-08 18:46] LABS: PARTIAL THROMBOPLASTIN TIME 33.2 SEC (23.5-35.8)
[2017-10-08 19:00] LABS: ALANINE AMINOTRANSFERASE 49 U/L (9-52); ALBUMIN 3.8 g/dL (3.5-5.0); ALKALINE PHOSPHATASE 80 U/L (38-126); ANION GAP 13 (5-19); ASPARTATE AMINO TRANSFERASE 40 U/L (14-36); BILIRUBIN,DIRECT 0.3 mg/dL (0.0-0.4); BILIRUBIN,TOTAL 0.3 mg/dL (0.2-1.3); BLOOD UREA NITROGEN 7 mg/dL (7-20); CARBON DIOXIDE 27 mmol/L (22-30); CHLORIDE 108 mmol/L (98-107); GLUCOSE 93 mg/dL (75-110); POTASSIUM 4.1 mmol/L (3.6-5.0); SODIUM 148.3 mmol/L (137-145); TOTAL PROTEIN 7.1 g/dL (6.3-8.2)
--- NOTE | 2017-10-08 19:31 | EKG REPORT ---
SEVERITY:- NORMAL ECG - SINUS RHYTHM : Confirmed by: Mark Potter MD 08-Oct-2017 19:30:05
--- NOTE | 2017-10-08 20:44 | RADIOLOGY REPORT (SQ) ---
EXAM DESCRIPTION: CTA CHEST COMPLETED DATE/TIME: 10/08/2017 8:35 pm REASON FOR STUDY: sob, recent hx of possible PE COMPARISON: None. TECHNIQUE: CT scan of the chest performed using helical scanning technique with dynamic intravenous contrast injection. Images reviewed with lung, soft tissue and bone windows. Reconstructed coronal and sagittal MPR images reviewed. Additional 3 dimensional post-processing performed to develop Maximal Intensity Projection images (HI P). All images stored on PACS. All CT scanners at this facility use dose modulation, iterative reconstruction, and/or weight based d osing when appropriate to reduce radiation dose to as low as reasonably achievable (ALARA). [facility]: Dose Right [facility]: CareDose [facility]: Dose Right [facility]: Teradose 4D [facility]: HemoSonics CONTRAST TYPE AND DOSE: contrast/concentration: Isovue 350.00 mg/ml; Total Contrast Delivered: 86.0 ml; Total Saline Delivered: 80.0 ml Contrast bolus adequate for pulmonary arteries and aorta. RENAL FUNCTION: GFR > 60. RADIATION DOSE: CT Rad equipment meets quality standard of care and radiation dose reduction techniq ues were employed. CTDIvol: 41.2 - 49.6 mGy. DLP: 1535 mGy-cm. . LIMITATIONS: None. FINDINGS: LUNGS AND PLEURA: No masses, infiltrates, or pneumothorax. No pleural effusions or pleura l calcifications. AORTA AND GREAT VESSELS: No aneurysm. Contrast bolus not optimized for the aorta. HEART: No pericardial effusion. No significant coronary artery calcifications. PULMONARY ARTERIES: No emboli visualized in the main pulmonary arteries or the segmental branches. HILAR AND MEDIASTINAL STRUCTURES: No identified masses or abnormal nodes. HARDWARE: None in the chest. UPPER ABDOMEN: No significant findings. Limited exam. THYROID AND OTHER SOFT TISSUES: No masses. No adenopathy. BONES: No acute or significant finding. 3D MIPS: Confirm above findings. OTHER: No other significant finding. IMPRESSION: No emboli visualized in the main pulmonary arteries or the segmental branches. COMMENT: Quality ID # [id number]: Final reports with documentation of one or more dose reduction techniques (e.g., Automated exposure control, adjustment of the mA and/or kV according to patient size, use of iterative reconstruction technique) TECHNICAL DOCUMENTATION: JOB ID: [id number] [place]-72 2010 [employer]- All Rights Reserved Reading location - IP/workstation name: [employer]
--- NOTE | 2017-10-08 20:58 | ER Document Report ---
ED Respiratory Problem - General Chief Complaint: Asthma Exacerbation Stated Complaint: DIFFICULTY BREATHING Time Seen by Provider: 10/08/17 17:04 Notes: 6-year-old female to the emergency department chief complaint of cough, "cold- like symptoms", shortness of breath and wheezing. This is been going on since Sunday of last week. Continues to get worse. Patient was seen in April of this year and transferred to [facility] for possible pulmonary embolism. Patient had gastric bypass surgery in March. Currently patient denies any fevers but does have some intermittent chills. Has a tightness in her chest but no chest pain. TRAVEL OUTSIDE OF THE [place] IN LAST 30 DAYS: No - HPI Patient complains to provider of: Asthma, Cough, Short of breath Onset: Last week Duration: Continuous - Related Data Allergies/Adverse Reactions: No Known Allergies Allergy (Unverified 02/20/17 13:17) Past Medical History - General Information source: Patient - Social History Smoking Status: Never Smoker Frequency of alcohol use: None Drug Abuse: None Lives with: Family Family History: Reviewed & Not Pertinent Patient has suicidal ideation: No Patient has homicidal ideation: No - Past Medical History Cardiac Medical History: Reports: Hx Hypertension Endocrine Medical History: Reports: Hx Hypothyroidism Renal/ Medical History: Denies: Hx Peritoneal Dialysis GI Medical History: Reports: Hx Gastroesophageal Reflux Disease Past Surgical History: Reports: Hx Abdominal Surgery - gastic bypass, Hx Section, Hx Cholecystectomy, Hx Gastric Bypass Surgery, Hx Gynecologic Surgery - Immunizations Hx Diphtheria, Pertussis, Tetanus Vaccination: Yes Review of Systems - Review of Systems Notes: Constitutional: denies: Chills, Diaphoresis, Fever, Malaise, Weakness EENT: denies: Eye discharge, Blurred vision, Tearing, Double vision, Nose congestion, Nose discharge, Throat swelling, Mouth pain Cardiovascular: denies: Palpitations, Heart racing, Orthopnea, Dyspnea, Chest pain Respiratory: Positive for shortness of breath, cough, wheezing Gastrointestinal: denies: Abdominal pain, Diarrhea, Nausea, Vomiting, Black stools, bright red blood in stool Genitourinary: denies: Burning, Dysuria, Discharge, Frequency, Flank pain, Hematuria Musculoskeletal: denies: Joint pain, Joint swelling, Muscle pain, Muscle stiffness, back pain Hematologic/Lymphatic: denies: Anemia, Easy bleeding, Easy bruising, Blood clots Neurological/Psychological: denies: Confusion, Dementia, Depression, Loss of consciousness Skin: No lesions, no masses, no skin breakdown, no abscesses Physical Exam - Vital signs Vitals: Temp Pulse Resp BP Pulse Ox 99.1 F 86 20 184/88 H 98 10/08/17 15:19 10/08/17 15:19 10/08/17 15:19 10/08/17 15:19 10/08/17 15:19 Interpretation: Normal - General General appearance: Appears well, Alert - HEENT Head: Normocephalic, Atraumatic Eyes: Normal Pupils: PERRL - Respiratory Respiratory status: No respiratory distress Chest status: Nontender Breath sounds: Nonproductive cough, Wheezing. No: Rales, Rhonchi, Stridor Chest palpation: Normal - Cardiovascular Rhythm: Regular Heart sounds: Normal auscultation Murmur: No - Abdominal Inspection: Normal Distension: No distension Bowel sounds: Normal Tenderness: Nontender Organomegaly: No organomegaly - Back Back: Normal, Nontender - Extremities General upper extremity: Normal inspection, Nontender, Normal color, Normal ROM , Normal temperature General lower extremity: Normal inspection, Nontender, Normal color, Normal ROM , Normal temperature, Normal weight bearing. No: Carl's sign - Neurological Neuro grossly intact: Yes Cognition: Normal Orientation: AAOx4 [place] Coma Scale Eye Opening: Spontaneous [place] Coma Scale Verbal: Oriented [place] Coma Scale Motor: Obeys Commands [place] Coma Scale Total: 15 Speech: Normal Motor strength normal: LUE, RUE, LLE, RLE Sensory: Normal - Psychological Associated symptoms: Normal affect, Normal mood - Skin Skin Temperature: Warm Skin Moisture: Dry Skin Color: Normal Course - Re-evaluation Re-evalutation: 10/08/17 20:57 Well-appearing female with some audible wheezes raspy cough. More likely has bronchitis. Based on this pulmonary embolism questionable history and CT angios was performed. This was negative. Labs are unremarkable. At this time we have given her breathing treatment and steroids. Vital signs are acceptable. Will start on prednisone and albuterol. Will also prescribe her a Z-Andrew as the symptoms have been present for over a week. 10/08/17 20:58 Laboratory 10/08/17 10/08/17 10/08/17 18:01 18:01 18:01 WBC 6.0 RBC 4.56 Hgb 11.8 L Hct 36.9 MCV 81 MCH 25.9 L MCHC 32.0 RDW 15.3 H Plt Count 333 Seg Neutrophils % 52.1 Lymphocytes % 37.8 Monocytes % 7.1 Eosinophils % 2.0 Basophils % 1.0 Absolute Neutrophils 3.1 Absolute Lymphocytes 2.3 Absolute Monocytes 0.4 Absolute Eosinophils 0.1 Absolute Basophils 0.1 PT 15.7 H INR 1.19 APTT 33.2 Sodium 148.3 H Potassium 4.1 Chloride 108 H Carbon Dioxide 27 Anion Gap 13 BUN 7 Creatinine 0.71 Est GFR ( Amer) > 60 Est GFR (Non-Af Amer) > 60 Glucose 93 Calcium 9.0 Total Bilirubin 0.3 Direct Bilirubin 0.3 Neonat Total Bilirubin Not Reportable Neonat Direct Bilirubin Not Reportable Neonat Indirect Bili Not Reportable AST 40 H ALT 49 Alkaline Phosphatase 80 Total Protein 7.1 Albumin 3.8 Chest X-Ray 10/08/17 17:08 IMPRESSION: NO SIGNIFICANT RADIOGRAPHIC FINDING IN THE CHEST. Chest/Abdomen CTA 10/08/17 17:15 IMPRESSION: No emboli visualized in the main pulmonary arteries or the segmental branches. - Vital Signs Vital signs: Temp Pulse Resp BP Pulse Ox 99.1 F 86 20 184/88 H 98 10/08/17 15:19 10/08/17 15:19 10/08/17 15:19 10/08/17 15:19 10/08/17 15:19 - Laboratory Result Diagrams: 10/08/17 18:01 10/08/17 18:01 Laboratory results interpreted by wa: 10/08/17 10/08/17 10/08/17 18:01 18:01 18:01 Hgb 11.8 L MCH 25.9 L RDW 15.3 H PT 15.7 H Sodium 148.3 H Chloride 108 H AST 40 H - EKG Interpretation by Ks EKG shows normal: Sinus rhythm, [place], Intervals, QRS Complexes, ST-T Waves Discharge - Discharge Clinical Impression: Acute bronchitis Qualifiers: Bronchitis organism: unspecified organism Qualified Code(s): J20.9 - Acute bronchitis, unspecified Condition: Good Disposition: HOME, SELF-CARE Instructions: Inhaled Bronchodilators ([facility]), Azithromycin ([facility]) Prescriptions: Albuterol Sulfate [Albuterol Sulfate 2.5mg/3 mL] 1 vial IH Q4 PRN 5 Days #25 vial PRN Reason: Azithromycin 250 mg PO DAILY 5 Days #6 tablet Prednisone [Deltasone 20 mg Tablet] 3 tab PO DAILY 5 Days #15 tablet Forms: Return to Work
[2017-10-08 21:01] VITALS: BP 153/89
== END 2017-10-08 21:09 | disposition home or self-care (01) ==
LOC: ER 15:11
DX: J20.9 Acute bronchitis, unspecified (principal); J45.901 Unspecified asthma with (acute) exacerbation; I10 Essential (primary) hypertension; E03.9 Hypothyroidism, unspecified; Z98.84 Bariatric surgery status; Z90.49 Acquired absence of other specified parts of digestive tract
CPT/HCPCS: 93005; 94640; 99285; 36415; 85025; 85610; 85730; 80053; 71046; 71275; 93010; J7512

== ENCOUNTER 2018-03-29 19:19 | Emergency (ER) | payer BC ==
[2018-03-29 19:27] VITALS: BP 156/111
[2018-03-29] MEDS ORDERED: IPRATROPIUM/ALBUTEROL 0.5-2.5 MG/3 ML AMPUL NEB ONE ×2 (20:10→22:18)
--- NOTE | 2018-03-29 20:13 | ER Document Report ---
ED Medical Screen (RME) - General Chief Complaint: Flu Symptoms Stated Complaint: COUGH Time Seen by Provider: 03/29/18 20:03 Mode of Arrival: Ambulatory Information source: Patient Notes: 42-year-old female with a history of asthma (albuterol, Advair, Brio, Spiriva), hypothyroidism, GERD. Patient presents to the emergency room with cough, wheezing, shortness of breath over the past week. Past surgical history: Gastric bypass, cholecystectomy, cyst removal. TRAVEL OUTSIDE OF THE [place] IN LAST 30 DAYS: No - Related Data Allergies/Adverse Reactions: No Known Allergies Allergy (Unverified 02/20/17 13:17) Past Medical History - Social History Frequency of alcohol use: Rare Drug Abuse: None - Past Medical History Cardiac Medical History: Reports: Hx Hypertension Pulmonary Medical History: Reports: Hx Asthma Neurological Medical History: Reports: Hx Migraine Endocrine Medical History: Reports: Hx Hypothyroidism Renal/ Medical History: Denies: Hx Peritoneal Dialysis GI Medical History: Reports: Hx Gastroesophageal Reflux Disease Past Surgical History: Reports: Hx Abdominal Surgery - gastric bypass, Hx Section, Hx Cholecystectomy, Hx Gastric Bypass Surgery, Hx Gynecologic Surgery - Immunizations Hx Diphtheria, Pertussis, Tetanus Vaccination: Yes Physical Exam - Vital signs Vitals: Temp Pulse Resp BP Pulse Ox 99.4 F 90 19 156/111 H 97 03/29/18 19:23 03/29/18 19:23 03/29/18 19:23 03/29/18 19:23 03/29/18 19:23 Course - Vital Signs Vital signs: Temp Pulse Resp BP Pulse Ox 99.4 F 90 19 156/111 H 97 03/29/18 19:23 03/29/18 19:23 03/29/18 19:23 03/29/18 19:23 03/29/18 19:23
--- NOTE | 2018-03-29 20:32 | RADIOLOGY REPORT (SQ) ---
XR CHEST 2 VIEWS HISTORY: Cough, shortness of breath. COMPARISON: None. FINDINGS: The heart size is normal. The lungs are clear. No pleural effusions or pneumothorax is seen. No acute bony findings. IMPRESSION: No evidence of acute cardiopulmonary disease.
[2018-03-29 21:00] LABS: A TYPE INFLUENZA AG NEGATIVE (NEGATIVE); B INFLUENZA AG NEGATIVE (NEGATIVE)
[2018-03-29] MEDS ORDERED: ONDANSETRON 4 MG TAB.RAPDIS PO ONE (21:03)
[2018-03-29] MEDS ORDERED: PREDNISONE 20 MG TABLET PO ONE (21:03)
[2018-03-29] MEDS ORDERED: OXYCODONE-ACETAMINOPHEN 5-325 MG TABLET PO ONE (21:03)
--- NOTE | 2018-03-29 22:26 | ER Document Report ---
ED General - General Chief Complaint: Flu Symptoms Stated Complaint: COUGH Time Seen by Provider: 03/29/18 20:03 Mode of Arrival: Ambulatory TRAVEL OUTSIDE OF THE [place] IN LAST 30 DAYS: No - HPI Notes: Patient presents to the emergency department for evaluation of cough, fever, shortness of breath. Symptoms been going on for the last few days. She does have a history of asthma. She states she has budesonide at home which is not helping with her breathing. She is never been hospitalized for her asthma. She has not been on steroids recently. She states she had a fever of 102 degrees at home today. She has had nausea and one episode of emesis daily, but she refers to it as posttussive. - Related Data Allergies/Adverse Reactions: No Known Allergies Allergy (Unverified 02/20/17 13:17) Past Medical History - General Information source: Patient - Social History Smoking Status: Never Smoker Frequency of alcohol use: Rare Drug Abuse: None Family History: Reviewed & Not Pertinent Patient has suicidal ideation: No Patient has homicidal ideation: No - Past Medical History Cardiac Medical History: Reports: Hx Hypertension Pulmonary Medical History: Reports: Hx Asthma Neurological Medical History: Reports: Hx Migraine Endocrine Medical History: Reports: Hx Hypothyroidism Renal/ Medical History: Denies: Hx Peritoneal Dialysis GI Medical History: Reports: Hx Gastroesophageal Reflux Disease Past Surgical History: Reports: Hx Abdominal Surgery - gastric bypass, Hx Section, Hx Cholecystectomy, Hx Gastric Bypass Surgery, Hx Gynecologic Surgery - Immunizations Hx Diphtheria, Pertussis, Tetanus Vaccination: Yes Review of Systems - Review of Systems Constitutional: See HPI EENT: No symptoms reported Cardiovascular: No symptoms reported Respiratory: See HPI Musculoskeletal: No symptoms reported Skin: No symptoms reported -: Yes All other systems reviewed and negative Physical Exam - Vital signs Vitals: Temp Pulse Resp BP Pulse Ox 99.4 F 90 19 156/111 H 97 03/29/18 19:23 03/29/18 19:23 03/29/18 19:23 03/29/18 19:23 03/29/18 19:23 Interpretation: Hypertensive Notes: Otherwise reviewed, as charted - Notes Notes: Patient is awake, alert, in no acute distress. Is normocephalic and atraumatic. Pupils were equal round reactive to light. Pharynx is without erythema or exudate. Neck is supple without thyromegaly or adenopathy. Heart is regular rate and rhythm. Lungs show diminished breath sounds with scattered expiratory wheezes, prominently at the bases. Abdomen is soft, nontender, normoactive bowel sounds. Extremities without cyanosis or clubbing. No posterior calf tenderness. Skin is warm and dry. Course - Re-evaluation Re-evalutation: 03/29/18 22:20 Patient presents emergency department for evaluation of difficulty breathing. She is an asthmatic but she is oxygenating well. She is in no apparent respiratory distress. She is never had to be hospitalized for her asthma. She was treated with a DuoNeb with only moderate improvement. She was further me dicated with steroids, pain medication. She was feeling improved. Chest x-ray is negative as per radiology since as well as my interpretation. Influenza swab was negative. Patient does have a nebulizer at home but relates the only medication she has throughout his budesonide. I will send her home with a DuoNeb prescription as well as steroids. She is to follow-up with her primary care physician, return to the emergency department with worsening or new concerning symptoms of any sort. - Vital Signs Vital signs: Temp Pulse Resp BP Pulse Ox 99.4 F 90 19 156/111 H 97 03/29/18 19:23 03/29/18 19:23 03/29/18 19:23 03/29/18 19:23 03/29/18 19:23 - Laboratory Laboratory results interpreted by me: 03/29/18 22:21 Influenza swab negative Discharge - Discharge Clinical Impression: Acute asthma exacerbation, Viral respiratory illness Instructions: Viral Syndrome ([facility]), Asthma ([facility]) Additional Instructions: Take all of the prednisone as directed until gone, starting tomorrow. Use DuoNeb as needed for difficulty breathing at home. Follow-up with your doctor next week. Return to the emergency department with worsening or new concerning symptoms.
== END 2018-03-29 22:58 | disposition home or self-care (01) ==
LOC: ER 19:19
DX: J45.901 Unspecified asthma with (acute) exacerbation (principal); J98.8 Other specified respiratory disorders; B97.89 Other viral agents as the cause of diseases classified elsewhere; R05 Cough; R50.9 Fever, unspecified; R11.2 Nausea with vomiting, unspecified; R06.02 Shortness of breath; I10 Essential (primary) hypertension; Z87.19 Personal history of other diseases of the digestive system; Z98.84 Bariatric surgery status; Z90.49 Acquired absence of other specified parts of digestive tract
CPT/HCPCS: 94640 ×2; 99283; 87804; 71046; S0119; J7512; J7620

== ENCOUNTER 2018-06-24 10:50 | Emergency (ER) | payer BC ==
[2018-06-24] MEDS ORDERED: ONDANSETRON HCL INJ/PF 4 MG/2 ML SDV IV ONE (11:54)
[2018-06-24] MEDS ORDERED: NORMAL SALINE 1000 ML 1,000 ML IV PRN (11:54)
--- NOTE | 2018-06-24 11:56 | ER Document Report ---
ED Medical Screen (RME) - General Chief Complaint: Abdominal Pain Stated Complaint: ABDOMINAL PAIN Time Seen by Provider: 06/24/18 11:53 Mode of Arrival: Ambulatory Information source: Patient Notes: 42-year-old female presented to ED for complaint of epigastric pain with dizziness nausea and vomiting. She states she is not able to eat this morning due to the pain. She states she had a gastric bypass patient also has a history of gallbladder removal ovarian cyst. She is alert oriented respirations regular and unlabored she does have epigastric tenderness bowel sounds are present. Does not smoke drink or do any drugs. 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 I have greeted and performed a rapid initial assessment of this patient. A comprehensive ED assessment and evaluation of the patient, analysis of test results and completion of medical decision making process will be conducted by an additional ED providers. Dictation of this chart was performed using voice recognition software; therefore, there may be some unintended grammatical errors. TRAVEL OUTSIDE OF THE [place] IN LAST 30 DAYS: No - Related Data Allergies/Adverse Reactions: No Known Allergies Allergy (Verified 06/24/18 10:53) Past Medical History - Social History Frequency of alcohol use: None Drug Abuse: None - Past Medical History Cardiac Medical History: Reports: Hx Hypertension Pulmonary Medical History: Reports: Hx Asthma Neurological Medical History: Reports: Hx Migraine Endocrine Medical History: Reports: Hx Hypothyroidism Renal/ Medical History: Denies: Hx Peritoneal Dialysis GI Medical History: Reports: Hx Gastroesophageal Reflux Disease Past Surgical History: Reports: Hx Abdominal Surgery - gastric bypass, Hx Section, Hx Cholecystectomy, Hx Gastric Bypass Surgery, Hx Gynecologic Surgery - ovarian cyst - Immunizations Hx Diphtheria, Pertussis, Tetanus Vaccination: Yes Physical Exam - Vital signs Vitals: Temp Pulse Resp BP Pulse Ox 99.1 F 60 16 134/77 H 98 06/24/18 11:05 06/24/18 11:05 06/24/18 11:05 06/24/18 11:05 06/24/18 11:05 Course - Vital Signs Vital signs: Temp Pulse Resp BP Pulse Ox 99.1 F 60 16 134/77 H 98 06/24/18 11:05 06/24/18 11:05 06/24/18 11:05 06/24/18 11:05 06/24/18 11:05
[2018-06-24 13:10] LABS: ABSOLUTE EOSINOPHILS # (AUTO) 0.1 10^3/uL (0.0-0.6); ABSOLUTE LYMPHOCYTES (AUTO) 2.8 10^3/uL (0.5-4.7); ABSOLUTE MONOCYTES (AUTO) 0.6 10^3/uL (0.1-1.4); ABSOLUTE NEUT (AUTO) 2.3 10^3/uL (1.7-8.2); BASOPHILS % (AUTO) 0.3 % (0-2); EOSINOPHILS % (AUTO) 1.7 % (0-6); HEMATOCRIT 37.7 % (36.0-47.0); HEMOGLOBIN 11.8 g/dL (12.0-15.5); LYMPHOCYTES % (AUTO) 47.6 % (13-45); MEAN CORPUSCULAR HEMOGLOBIN 25.3 pg (27.0-33.4); MEAN CORPUSCULAR HGB CONC 31.2 g/dL (32.0-36.0); MEAN CORPUSCULAR VOLUME 81 fl (80-97); MONOCYTES % (AUTO) 10.4 % (3-13); PLATELET COUNT 300 10^3/uL (150-450); RED BLOOD COUNT 4.65 10^6/uL (3.72-5.28); TOTAL CELLS COUNTED % (AUTO) 100 %; WHITE BLOOD COUNT 5.8 10^3/uL (4.0-10.5)
[2018-06-24 13:30] LABS: ALANINE AMINOTRANSFERASE 96 U/L (9-52); ALBUMIN 3.9 g/dL (3.5-5.0); ALKALINE PHOSPHATASE 94 U/L (38-126); ANION GAP 9 (5-19); ASPARTATE AMINO TRANSFERASE 95 U/L (14-36); BILIRUBIN,DIRECT 0.3 mg/dL (0.0-0.4); BILIRUBIN,TOTAL 0.6 mg/dL (0.2-1.3); BLOOD UREA NITROGEN 16 mg/dL (7-20); CALCIUM 9.4 mg/dL (8.4-10.2); CARBON DIOXIDE 26 mmol/L (22-30); CHLORIDE 111 mmol/L (98-107); GLUCOSE 95 mg/dL (75-110); LIPASE 85.7 U/L (23-300); POTASSIUM 4.2 mmol/L (3.6-5.0); SODIUM 145.8 mmol/L (137-145); TOTAL PROTEIN 7.2 g/dL (6.3-8.2)
--- NOTE | 2018-06-24 14:27 | RADIOLOGY REPORT (SQ) ---
EXAM DESCRIPTION: U/S ABDOMEN LIMITED W/O DOP COMPLETED DATE/TIME: 06/24/2018 2:09 pm REASON FOR STUDY: upper abdominal pain COMPARISON: None. TECHNIQUE: Dynamic and static grayscale images acquired of the abdomen and recorded on PACS. Additio nal selected color Doppler and spectral images recorded. LIMITATIONS: None. FINDINGS: PANCREAS: Not seen. LIVER: No masses. Echotexture normal. LIVER VASCULATURE: Normal directional flow of the main portal vein and hepatic veins. GALLBLADDER: Surgically absent. ULTRASOUND-DETECTED MEDLEY'S SIGN: Not applicable. INTRAHEPATIC DUCTS AND COMMON DUCT: CBD and intrahepatic ducts normal caliber. No filling defects. INFERIOR VENA CAVA: Normal flow. AORTA: Not seen. RIGHT KIDNEY: Normal size, 8.8 cm. Normal echogenicity. No solid or suspicious masses. No hydronephr osis. No calcifications. PERITONEAL AND RIGHT PLEURAL SPACE: No ascites or effusions. OTHER: No other significant findings. IMPRESSION: Normal right upper quadrant ultrasound. The aorta and pancreas cannot be well seen. TECHNICAL DOCUMENTATION: JOB ID: [id number] [employer]- All Rights Reserved Reading location - IP/workstation name: [email or web address]
[2018-06-24] MEDS ORDERED: METOCLOPRAMIDE HCL ORAL SOLN 10 MG/10 ML UDCUP PO ONE (15:26)
[2018-06-24] MEDS ORDERED: MORPHINE SULFATE 10 MG/ML INJ IV ONE (15:26)
[2018-06-24] MEDS ORDERED: MAG HYDROX/AL HYDROX/SIMETH SUSP 30 ML UDCUP PO ONE (15:26)
[2018-06-24] MEDS ORDERED: LIDOCAINE 2% VISCOUS SOLN 20 ML UDCUP PO ONE (15:26)
--- NOTE | 2018-06-24 15:31 | ER Document Report ---
ED General - General Chief Complaint: Abdominal Pain Stated Complaint: ABDOMINAL PAIN Time Seen by Provider: 06/24/18 11:53 Mode of Arrival: Ambulatory TRAVEL OUTSIDE OF THE [place] IN LAST 30 DAYS: No - HPI Notes: Patient is a 42-year-old female that presents to the emergency department for chief complaint of abdominal pain. Patient reports epigastric abdominal pain for the last 6 days. The pain is intermittent and is worse 30 minutes after eating. She states that she has had decreased appetite because of the pain. She reports 2 episodes of vomiting over the last few days and the last one was early yesterday. She denies any associated fevers or chills. She reports history of IBS and frequently has diarrhea. She reports no change in her bowel movements over the last few days. She denies any black or bloody stools or blood in her emesis. Patient does report she had and EGD and colonoscopy performed 1 to [address] Stevens that was normal. She reports history of gastric bypass just over a year ago. Past Medical History: Hypertension, GERD, IBS Past Surgical History: Gastric bypass Social History: Denies drugs alcohol and tobacco Family History: Reviewed and noncontributory for presenting illness Allergies: Reviewed, see documented allergy list. REVIEW OF SYSTEMS: CONSTITUTIONAL : No fever No chills No diaphoresis No recent illness EENT: No vision changes No congestion No sore throat CARDIOVASCULAR: No chest pain No palpitations RESPIRATORY: No shortness of breath No cough No difficulty breathing GASTROINTESTINAL: abdominal pain nausea vomiting diarrhea GENITOURINARY: No dysuria No hematuria No difficulty urinating MUSCULOSKELETAL: No back pain No leg pain No arm pain SKIN: No rashes No lesions LYMPHATIC: No swollen, enlarged glands. NEUROLOGICAL: No lightheadedness No headache No weakness No paresthesias PSYCHIATRIC: No anxiety No depression PHYSICAL EXAMINATION: Vital signs reviewed, nursing noted reviewed. GENERAL: Well-appearing, obese and in no acute distress. HEAD: Atraumatic, normocephalic. EYES: Eyes appear normal, extraocular movements intact, sclera anicteric, conjunctiva are normal. ENT: nares patent, oropharynx clear without exudates. Moist mucous membranes. NECK: Normal range of motion, supple without lymphadenopathy LUNGS: Breath sounds clear to auscultation bilaterally and equal. No wheezes rales or rhonchi. HEART: Regular rate and rhythm without murmurs ABDOMEN: Soft, mild epigastric tenderness, no right upper quadrant tenderness, normoactive bowel sounds. No rebound, guarding, or rigidity. No masses appreciated. EXTREMITIES: Nontender, good range of motion, no pitting or edema. NEUROLOGICAL: No focal neurological deficits. Moves all extremities spontaneously Motor and sensory grossly intact on exam. PSYCH: Normal mood, normal affect. SKIN: Warm, Dry, normal turgor, no rashes or lesions noted on exposed skin - Related Data Allergies/Adverse Reactions: No Known Allergies Allergy (Verified 06/24/18 10:53) Past Medical History - General Information source: Patient - Social History Smoking Status: Never Smoker Frequency of alcohol use: None Drug Abuse: None Family History: Reviewed & Not Pertinent Patient has suicidal ideation: No Patient has homicidal ideation: No - Past Medical History Cardiac Medical History: Reports: Hx Hypertension Pulmonary Medical History: Reports: Hx Asthma Neurological Medical History: Reports: Hx Migraine Endocrine Medical History: Reports: Hx Hypothyroidism Renal/ Medical History: Denies: Hx Peritoneal Dialysis GI Medical History: Reports: Hx Gastroesophageal Reflux Disease Past Surgical History: Reports: Hx Abdominal Surgery - gastric bypass, Hx Section, Hx Cholecystectomy, Hx Gastric Bypass Surgery, Hx Gynecologic Surgery - ovarian cyst - Immunizations Hx Diphtheria, Pertussis, Tetanus Vaccination: Yes Physical Exam - Vital signs Vitals: Temp Pulse Resp BP Pulse Ox 99.1 F 60 16 134/77 H 98 06/24/18 11:05 06/24/18 11:05 06/24/18 11:05 06/24/18 11:05 06/24/18 11:05 Course - Re-evaluation Re-evalutation: 06/24/18 15:29 Vitals reviewed. Nursing notes reviewed. Patient has some epigastric tendern ess with no peritoneal signs or guarding. Her abdominal exam is benign. Vitals are stable and she is afebrile. Her lab work has no leukocytosis. Lipase is normal and she does not have acute pancreatitis. She does have slight elevation of her LFTs but has a normal total bili and alk phos. Ultrasound of the right upper quadrant is unremarkable and shows no fluid to suggest perforation of her gastric bypass. Patient has not vomited since yesterday and has tolerated liquid intake. I counseled her on drinking clear liquids and advancing her diet as tolerated. She is to follow with Dr. Stevens in the next few days for close outpatient reevaluation. She is to return to the emergency room for new or worsening symptoms. Patient received morphine and GI cocktail for symptomatic management. Laboratory 06/24/18 06/24/18 06/24/18 12:35 12:35 12:35 WBC 5.8 RBC 4.65 Hgb 11.8 L Hct 37.7 MCV 81 MCH 25.3 L MCHC 31.2 L RDW 16.0 H Plt Count 300 Seg Neutrophils % 40.0 L Lymphocytes % 47.6 H Monocytes % 10.4 Eosinophils % 1.7 Basophils % 0.3 Absolute Neutrophils 2.3 Absolute Lymphocytes 2.8 Absolute Monocytes 0.6 Absolute Eosinophils 0.1 Absolute Basophils 0.0 Sodium 145.8 H Potassium 4.2 Chloride 111 H Carbon Dioxide 26 Anion Gap 9 BUN 16 Creatinine 0.79 Est GFR ( Amer) > 60 Est GFR (Non-Af Amer) > 60 Glucose 95 Calcium 9.4 Total Bilirubin 0.6 Direct Bilirubin 0.3 Neonat Total Bilirubin Not Reportable Neonat Direct Bilirubin Not Reportable Neonat Indirect Bili Not Reportable AST 95 H ALT 96 H Alkaline Phosphatase 94 Total Protein 7.2 Albumin 3.9 Lipase 85.7 Serum HCG, Qual NEGATIVE Abdomen Ultrasound 06/24/18 11:53 IMPRESSION: Normal right upper quadrant ultrasound. The aorta and pancreas cannot be well seen. 06/24/18 15:31 - Vital Signs Vital signs: Temp Pulse Resp BP Pulse Ox 99.1 F 60 16 134/77 H 98 06/24/18 11:05 06/24/18 11:05 06/24/18 11:05 06/24/18 11:05 06/24/18 11:05 - Laboratory Result Diagrams: 06/24/18 12:35 06/24/18 12:35 Laboratory results interpreted by me: 06/24/18 06/24/18 12:35 12:35 Hgb 11.8 L MCH 25.3 L MCHC 31.2 L RDW 16.0 H Seg Neutrophils % 40.0 L Lymphocytes % 47.6 H Sodium 145.8 H Chloride 111 H AST 95 H ALT 96 H Discharge - Discharge Clinical Impression: Epigastric abdominal pain Condition: Stable Disposition: HOME, SELF-CARE Instructions: Abdominal Pain ([facility]) Additional Instructions: Please return to the emergency department if you have any worsening, or concern of your symptoms. Please return to the emergency department if you develop chest pain, difficulty breathing, severe abdominal pain, or ongoing vomiting. Please follow-up with your primary care physician in 2-3 days and any other recommended physicians. If prescribed, take all medications as directed. If you have any questions or concerns do not hesitate to return the emergency department for evaluation. Take Tylenol as needed for your pain. Avoid NSAIDs including Motrin and ibuprofen and Aleve Prescriptions: Sucralfate [Carafate] 1 gm PO QID PRN 14 Days oral.susp PRN Reason: abdominal pain Referrals: ANTONIETA STEVENS MD [ACTIVE STAFF] - Follow up tomorrow
[2018-06-24 15:52] VITALS: BP 138/94
== END 2018-06-24 15:52 | disposition home or self-care (01) ==
LOC: ER 10:50
DX: R10.13 Epigastric pain (principal); R10.816 Epigastric abdominal tenderness; R63.0 Anorexia; R11.2 Nausea with vomiting, unspecified; R79.89 Other specified abnormal findings of blood chemistry; J45.909 Unspecified asthma, uncomplicated; I10 Essential (primary) hypertension; Z98.84 Bariatric surgery status; Z87.19 Personal history of other diseases of the digestive system
CPT/HCPCS: 99284; 96361; 96374; 96375; 36415; 83690; 84703; 85025; 80053; 76705; J3490; J2270; J2405; J7030

== ENCOUNTER 2018-07-18 10:33 | Emergency (ER) | payer BC ==
[2018-07-18] MEDS ORDERED: NORMAL SALINE 1000 ML 1,000 ML IV ONE ×2 (10:54→14:26)
[2018-07-18] MEDS ORDERED: ONDANSETRON HCL INJ/PF 4 MG/2 ML SDV IV ONE ×2 (10:54→18:23)
[2018-07-18] MEDS ORDERED: MORPHINE SULFATE 10 MG/ML INJ IV ONE (10:54)
--- NOTE | 2018-07-18 10:55 | ER Document Report ---
ED Medical Screen (RME) - General Chief Complaint: Abdominal Pain Stated Complaint: ABDOMINAL PAIN Time Seen by Provider: 07/18/18 10:51 Mode of Arrival: Ambulatory Information source: Patient Notes: Patient is a 43-year-old female presented to the emergency department with severe abdominal pain. Patient reports intermittent sharp stabbing low abdominal pain and constant epigastric pain. Patient recently had abdominal surgery done at [facility]. Patient reports the pain shoots straight through to her back. She reports associated nausea. Patient tearful and appears to be in significant discomfort. I have greeted and performed a rapid initial assessment of this patient. A comprehensive ED assessment and evaluation of the patient, analysis of test results and completion of the medical decision making process will be conducted by additional ED providers. Dictation of this chart was performed using voice recognition software; therefore, there may be some unintended grammatical error s. TRAVEL OUTSIDE OF THE [place] IN LAST 30 DAYS: No - Related Data Allergies/Adverse Reactions: shellfish derived Allergy (Verified 07/18/18 10:49) Past Medical History - Past Medical History Cardiac Medical History: Reports: Hx Hypertension Pulmonary Medical History: Reports: Hx Asthma Neurological Medical History: Reports: Hx Migraine Endocrine Medical History: Reports: Hx Hypothyroidism Renal/ Medical History: Denies: Hx Peritoneal Dialysis GI Medical History: Reports: Hx Gastroesophageal Reflux Disease Past Surgical History: Reports: Hx Abdominal Surgery - gastric bypass, Hx Section, Hx Cholecystectomy, Hx Gastric Bypass Surgery, Hx Gynecologic Surgery - ovarian cyst - Immunizations Hx Diphtheria, Pertussis, Tetanus Vaccination: Yes Physical Exam - Vital signs Vitals: Temp Pulse Resp BP Pulse Ox 98.5 F 88 22 H 144/107 H 96 07/18/18 10:37 07/18/18 10:37 07/18/18 10:37 07/18/18 10:37 07/18/18 10:37 Course - Vital Signs Vital signs: Temp Pulse Resp BP Pulse Ox 98.5 F 88 22 H 144/107 H 96 07/18/18 10:37 07/18/18 10:37 07/18/18 10:37 07/18/18 10:37 07/18/18 10:37
[2018-07-18 11:35] LABS: ABSOLUTE EOSINOPHILS # (AUTO) 0.1 10^3/uL (0.0-0.6); ABSOLUTE LYMPHOCYTES (AUTO) 2.3 10^3/uL (0.5-4.7); ABSOLUTE MONOCYTES (AUTO) 0.5 10^3/uL (0.1-1.4); ABSOLUTE NEUT (AUTO) 3.2 10^3/uL (1.7-8.2); BASOPHILS % (AUTO) 0.5 % (0-2); EOSINOPHILS % (AUTO) 1.5 % (0-6); HEMATOCRIT 37.1 % (36.0-47.0); MEAN CORPUSCULAR HEMOGLOBIN 25.8 pg (27.0-33.4); MEAN CORPUSCULAR HGB CONC 32.4 g/dL (32.0-36.0); MEAN CORPUSCULAR VOLUME 80 fl (80-97); MONOCYTES % (AUTO) 8.1 % (3-13); PLATELET COUNT 303 10^3/uL (150-450); RED BLOOD COUNT 4.65 10^6/uL (3.72-5.28); RED CELL DISTRIBUTION WIDTH 14.7 % (11.5-14.0); SEGMENTED NEUTROPHILS % (AUTO) 52.9 % (42-78); TOTAL CELLS COUNTED % (AUTO) 100 %; WHITE BLOOD COUNT 6.1 10^3/uL (4.0-10.5)
[2018-07-18 11:38] LABS: APPEARANCE,URINE SLIGHTLY-CLOUDY; BILIRUBIN,URINE NEGATIVE (NEGATIVE); COLOR,URINE AMBER; GLUCOSE, URINE NEGATIVE (NEGATIVE); KETONES,URINE TRACE mg/dL (NEGATIVE); LEUKOCYTE ESTERASE,URINE NEGATIVE (NEGATIVE); NITRITE,URINE NEGATIVE (NEGATIVE); PROTEIN,URINE NEGATIVE (NEGATIVE); URINE SPECIFIC GRAVITY 1.029; UROBILINOGEN,URINE NEGATIVE mg/dL (<2.0)
[2018-07-18 11:58] LABS: ALANINE AMINOTRANSFERASE 58 U/L (9-52); ALBUMIN 4.1 g/dL (3.5-5.0); ALKALINE PHOSPHATASE 77 U/L (38-126); ANION GAP 8 (5-19); ASPARTATE AMINO TRANSFERASE 71 U/L (14-36); BILIRUBIN,DIRECT 0.3 mg/dL (0.0-0.4); BILIRUBIN,TOTAL 0.5 mg/dL (0.2-1.3); BLOOD UREA NITROGEN 14 mg/dL (7-20); CALCIUM 9.3 mg/dL (8.4-10.2); CARBON DIOXIDE 26 mmol/L (22-30); CHLORIDE 109 mmol/L (98-107); GLUCOSE 91 mg/dL (75-110); LIPASE 48.7 U/L (23-300); POTASSIUM 4.1 mmol/L (3.6-5.0); TOTAL PROTEIN 6.9 g/dL (6.3-8.2)
[2018-07-18] MEDS ORDERED: FAMOTIDINE INJ/PF 20 MG/2 ML SDV IV ONE (13:31)
--- NOTE | 2018-07-18 13:31 | ER Document Report ---
ED GI/ - General Chief Complaint: Abdominal Pain Stated Complaint: ABDOMINAL PAIN Time Seen by Provider: 07/18/18 10:51 Mode of Arrival: Ambulatory Notes: 43-year-old female to the emergency department chief complaint of abdominal pain. Patient had a bowel obstruction approximately 3 weeks ago. Operated on by Dr. Diggs in [place]. States that over the last 2 days she has had worsening pain in the abdomen. Nausea and vomiting. No diarrhea. Also having some pain in the lower pelvic region. TRAVEL OUTSIDE OF THE [place] IN LAST 30 DAYS: No - HPI Patient complains to provider of: Abdominal pain, Vomiting Timing/Duration: Gradual, Worse Quality of pain: Achy Severity at maximum: Moderate Severity in ED: Moderate Pain Level: 3 - Related Data Allergies/Adverse Reactions: shellfish derived Allergy (Verified 07/18/18 10:49) Past Medical History - General Information source: Patient - Social History Smoking Status: Never Smoker Frequency of alcohol use: None Drug Abuse: None Lives with: Spouse/Significant other Family History: Reviewed & Not Pertinent Patient has suicidal ideation: No Patient has homicidal ideation: No - Past Medical History Cardiac Medical History: Reports: Hx Hypertension Pulmonary Medical History: Reports: Hx Asthma Neurological Medical History: Reports: Hx Migraine Endocrine Medical History: Reports: Hx Hypothyroidism Renal/ Medical History: Denies: Hx Peritoneal Dialysis GI Medical History: Reports: Hx Gastroesophageal Reflux Disease Past Surgical History: Reports: Hx Abdominal Surgery - gastric bypass, Hx Section, Hx Cholecystectomy, Hx Gastric Bypass Surgery, Hx Gynecologic Surgery - ovarian cyst - Immunizations Hx Diphtheria, Pertussis, Tetanus Vaccination: Yes Review of Systems - Review of Systems Notes: Constitutional: denies: Chills, Diaphoresis, Fever, Malaise, Weakness EENT: denies: Eye discharge, Blurred vision, Tearing, Double vision, Nose congestion, Nose discharge, Throat swelling, Mouth pain Cardiovascular: denies: Palpitations, Heart racing, Orthopnea, Dyspnea, Chest pain Respiratory: denies: Cough, Hurts to breathe, Wheezing, Shortness of breath Gastrointestinal: Complaining of abdominal pain, nausea, vomiting, Genitourinary: denies: Burning, Dysuria, Discharge, Frequency, Flank pain, Hematuria Musculoskeletal: denies: Joint pain, Joint swelling, Muscle pain, Muscle stiffness, back pain Hematologic/Lymphatic: denies: Anemia, Easy bleeding, Easy bruising, Blood clots Neurological/Psychological: denies: Confusion, Dementia, Depression, Loss of consciousness Skin: No lesions, no masses, no skin breakdown, no abscesses Physical Exam - Vital signs Vitals: Temp Pulse Resp BP Pulse Ox 98.5 F 88 22 H 144/107 H 96 07/18/18 10:37 07/18/18 10:37 07/18/18 10:37 07/18/18 10:37 07/18/18 10:37 Interpretation: Normal - General General appearance: Appears well, Alert - HEENT Head: Normocephalic, Atraumatic Eyes: Normal Pupils: PERRL - Respiratory Respiratory status: No respiratory distress Chest status: Nontender Breath sounds: Normal Chest palpation: Normal - Cardiovascular Rhythm: Regular Heart sounds: Normal auscultation Murmur: No - Abdominal Inspection: Normal Distension: No distension Bowel sounds: Normal Tenderness: Tender - Diffuse tenderness Organomegaly: No organomegaly - Back Back: Normal, Nontender - Extremities General upper extremity: Normal inspection, Nontender, Normal color, Normal ROM, Normal temperature General lower extremity: Normal inspection, Nontender, Normal color, Normal ROM, Normal temperature, Normal weight bearing. No: Carl's sign - Neurological Neuro grossly intact: Yes Cognition: Normal Orientation: AAOx4 Kristen Coma Scale Eye Opening: Spontaneous Kristen Coma Scale Verbal: Oriented Kristen Coma Scale Motor: Obeys Commands Kristen Coma Scale Total: 15 Speech: Normal Motor strength normal: LUE, RUE, LLE, RLE Sensory: Normal - Psychological Associated symptoms: Normal affect, Normal mood - Skin Skin Temperature: Warm Skin Moisture: Dry Skin Color: Normal Course - Re-evaluation Re-evalutation: 07/18/18 17:00 Attempted to contact patient's surgeon. Unsuccessful. At this time I am proceeding with a CT scan as she is a recent postop patient. Pain is controllable at this time. Labs are fairly unremarkable. 07/18/18 18:25 Laboratory 07/18/18 07/18/18 07/18/18 11:31 11:31 11:31 WBC 6.1 RBC 4.65 Hgb 12.0 Hct 37.1 MCV 80 MCH 25.8 L MCHC 32.4 RDW 14.7 H Plt Count 303 Seg Neutrophils % 52.9 Lymphocytes % 37.0 Monocytes % 8.1 Eosinophils % 1.5 Basophils % 0.5 Absolute Neutrophils 3.2 Absolute Lymphocytes 2.3 Absolute Monocytes 0.5 Absolute Eosinophils 0.1 Absolute Basophils 0.0 Sodium 143.0 Potassium 4.1 Chloride 109 H Carbon Dioxide 26 Anion Gap 8 BUN 14 Creatinine 0.69 Est GFR ( Amer) > 60 Est GFR (Non-Af Amer) > 60 Glucose 91 Calcium 9.3 Total Bilirubin 0.5 Direct Bilirubin 0.3 Neonat Total Bilirubin Not Reportable Neonat Direct Bilirubin Not Reportable Neonat Indirect Bili Not Reportable AST 71 H ALT 58 H Alkaline Phosphatase 77 Total Protein 6.9 Albumin 4.1 Lipase 48.7 Serum HCG, Qual NEGATIVE Urine Color Urine Appearance Urine pH Ur Specific [place] Urine Protein Urine Glucose (UA) Urine Ketones Urine Blood Urine Nitrite Urine Bilirubin Urine Urobilinogen Ur Leukocyte Esterase Urine WBC (Auto) Urine RBC (Auto) Squamous Epi Cells Auto Urine Mucus (Auto) Urine Ascorbic Acid 07/18/18 11:31 WBC RBC Hgb Hct MCV MCH MCHC RDW Plt Count Seg Neutrophils % Lymphocytes % Monocytes % Eosinophils % Basophils % Absolute Neutrophils Absolute Lymphocytes Absolute Monocytes Absolute Eosinophils Absolute Basophils Sodium Potassium Chloride Carbon Dioxide Anion Gap BUN Creatinine Est GFR ( Amer) Est GFR (Non-Af Amer) Glucose Calcium Total Bilirubin Direct Bilirubin Neonat Total Bilirubin Neonat Direct Bilirubin Neonat Indirect Bili AST ALT Alkaline Phosphatase Total Protein Albumin Lipase Serum HCG, Qual Urine Color ISAIAS Urine Appearance SLIGHTLY-CLOUDY Urine pH 5.0 Ur Specific [place] 1.029 Urine Protein NEGATIVE Urine Glucose (UA) NEGATIVE Urine Ketones TRACE H Urine Blood NEGATIVE Urine Nitrite NEGATIVE Urine Bilirubin NEGATIVE Urine Urobilinogen NEGATIVE Ur Leukocyte Esterase NEGATIVE Urine WBC (Auto) 2 Urine RBC (Auto) 0 Squamous Epi Cells Auto 1 Urine Mucus (Auto) RARE Urine Ascorbic Acid NEGATIVE Abdomen/Pelvis CT 07/18/18 00:00 IMPRESSION: Postsurgical changes. No acute findings. Acute Abdomen Series 07/18/18 13:30 IMPRESSION: NO RADIOGRAPHIC EVIDENCE FOR ACUTE ABDOMINAL DISEASE. She had a bowel obstruction 3 weeks ago. Operated on by Dr. Diggs. Repeat CT scan was performed today as well as x-rays and labs. All of this work-up is unremarkable. Uncertain etiology of patient's symptoms but at this time patient is stable for discharge. Patient has made contact with the surgeon's office but I have never received any call back from them and we have called their office as well as the patient at this time I have no further choice of the in the discharge her. I do believe patient is stable for discharge. - Vital Signs Vital signs: Temp Pulse Resp BP Pulse Ox 98.2 F 78 18 153/93 H 96 07/18/18 18:04 07/18/18 18:04 07/18/18 18:04 07/18/18 18:04 07/18/18 18:04 - Laboratory Result Diagrams: 07/18/18 11:31 07/18/18 11:31 Laboratory results interpreted by me: 07/18/18 07/18/18 07/18/18 11:31 11:31 11:31 MCH 25.8 L RDW 14.7 H Chloride 109 H AST 71 H ALT 58 H Urine Ketones TRACE H Discharge - Discharge Clinical Impression: Postoperative abdominal pain Condition: Good Disposition: HOME, SELF-CARE Instructions: Abdominal Pain ([facility]), Oral Narcotic Medication ([facility]), Antinausea Medication ([facility]) Additional Instructions: Please call your doctor. The CAT scan and x-rays and labs were all unremarkable. We do not know why you are hurting at this time. 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 He will be very important that you follow back up with him as soon as possible for repeat evaluation and treatment. In the event that your symptoms are getting worse please do not hesitate to return. Prescriptions: Hydrocodone/Acetaminophen [Christine 5-325 mg Tablet] 1 tab PO TID PRN 3 Days #9 tablet PRN Reason: For Breakthrough Pain Ondansetron [Zofran Odt 4 mg Tablet] 1 - 2 tab PO Q4H PRN #15 tab.rapdis PRN Reason: For Nausea/Vomiting Ranitidine HCl [Zantac] 150 mg PO BID 14 Days #28 tablet Referrals: LENIN DIGGS MD [NO LOCAL MD] - Follow up tomorrow
[2018-07-18] MEDS ORDERED: HYDROMORPHONE HCL INJ/PF 2 MG/ML AMPULE IV ONE (13:32)
--- NOTE | 2018-07-18 14:23 | RADIOLOGY REPORT (SQ) ---
EXAM DESCRIPTION: ACUTE ABDOMEN SERIES COMPLETED DATE/TIME: 07/18/2018 2:13 pm REASON FOR STUDY: abd pain COMPARISON: 10/08/2016. NUMBER OF VIEWS: Three views. TECHNIQUE: Frontal chest, supine abdomen and upright/decubitus abdomen radiographic images acquired. LIMITATIONS: None. FINDINGS: CHEST: Lungs clear of infiltrates. FREE AIR: None. No abnormal gas collections. BOWEL GAS PATTERN: Nonobstructive pattern. No dilated loops or air fluid levels. CALCIFICATIONS: No suspicious calcifications. HARDWARE: Surgical clips. SOFT TISSUES: No gross mass or suggestion of organomegaly. BONES: No acute fracture. No worrisome bone lesions. OTHER: No other significant finding. IMPRESSION: NO RADIOGRAPHIC EVIDENCE FOR ACUTE ABDOMINAL DISEASE. TECHNICAL DOCUMENTATION: JOB ID: [id number] [employer]- All Rights Reserved Reading location - IP/workstation name: [email or web address]
[2018-07-18] MEDS ORDERED: LIDOCAINE 2% VISCOUS SOLN 20 ML UDCUP PO ONE (14:26)
[2018-07-18] MEDS ORDERED: METOCLOPRAMIDE HCL ORAL SOLN 10 MG/10 ML UDCUP PO ONE (14:26)
[2018-07-18] MEDS ORDERED: MAG HYDROX/AL HYDROX/SIMETH SUSP 30 ML UDCUP PO ONE (14:26)
--- NOTE | 2018-07-18 17:57 | RADIOLOGY REPORT (SQ) ---
EXAM DESCRIPTION: CT ABD/PELVIS WITH IV ORAL COMPLETED DATE/TIME: 07/18/2018 5:32 pm REASON FOR STUDY: abd pain COMPARISON: 09/29/2016 TECHNIQUE: CT scan of the abdomen and pelvis performed with intravenous and oral contrast using arun dianna scanning technique with dynamic intravenous contrast injection. Images reviewed with lung, soft t issue, and bone windows. Reconstructed coronal and sagittal MPR images reviewed. Delayed images for e valuation of the urinary system also acquired. All images stored on PACS. All CT scanners at this facility use dose modulation, iterative reconstruction, and/or weight based d osing when appropriate to reduce radiation dose to as low as reasonably achievable (ALARA). [facility]: Dose Right [facility]: CareDose [facility]: Dose Right [facility]: Teradose 4D [facility]: Snippets CONTRAST TYPE AND DOSE: contrast/concentration: Isovue 350.00 mg/ml; Total Contrast Delivered: 100.0 ml; Total Saline Delivered: 72.0 ml RENAL FUNCTION: GFR > 60. RADIATION DOSE: CT Rad equipment meets quality standard of care and radiation dose reduction techniq ues were employed. CTDIvol: 21.1 - 29.4 mGy. DLP: 3009 mGy-cm. . LIMITATIONS: None. FINDINGS: LOWER CHEST: No significant findings. No nodules or infiltrates. LIVER: Normal size. No masses. No dilated ducts. SPLEEN: Normal size. No focal lesions. PANCREAS: No masses. No significant calcifications. No adjacent inflammation or peripancreatic fluid collections. Pancreatic duct not dilated. GALLBLADDER: Surgically absent. ADRENAL GLANDS: No significant masses or asymmetry. RIGHT KIDNEY AND URETER: No solid masses. No significant calcifications. No hydronephrosis or hyd roureter. LEFT KIDNEY AND URETER: No solid masses. No significant calcifications. No hydronephrosis or hydr oureter. AORTA AND VESSELS: No aneurysm. No dissection. Renal arteries, SMA, celiac without stenosis. RETROPERITONEUM: No retroperitoneal adenopathy, hemorrhage or masses. BOWEL AND PERITONEAL CAVITY: Prior gastric bypass. No evidence of bowel obstruction. No ascites or free air. There are 2 well-circumscribed fluid density lesions in the mesentery, 1 on image 53 measu ring just under 5 cm. A 2nd in the pelvis image 77. 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 APPENDIX: Not visualized. PELVIS: No significant masses. Normal bladder. No free fluid. ABDOMINAL WALL: No masses. No hernias. BONES: No significant or acute findings. OTHER: No other significant finding. IMPRESSION: Postsurgical changes. No acute findings. TECHNICAL DOCUMENTATION: JOB ID: [id number] Quality ID # [id number]: Final reports with documentation of one or more dose reduction techniques (e.g., Au tomated exposure control, adjustment of the mA and/or kV according to patient size, use of iterative reconstruction technique) 2010 [employer]- All Rights Reserved Reading location - IP/workstation name: [email or web address]
[2018-07-18 18:04] VITALS: BP 153/93
[2018-07-18] MEDS ORDERED: KETOROLAC TROMETHAMINE INJ/PF 30 MG/1 ML SDV IV ONE (18:23)
[2018-07-18] MEDS ORDERED: HYDROCODONE/ACETAMINOPHEN 5-325 MG TABLET PO ONE (18:23)
== END 2018-07-18 19:07 | disposition home or self-care (01) ==
LOC: ER 10:33
DX: R10.9 Unspecified abdominal pain (principal); I10 Essential (primary) hypertension; Z91.013 Allergy to seafood; Z98.84 Bariatric surgery status; Z98.890 Other specified postprocedural states
CPT/HCPCS: 96376; 99284; 96361; 96374; 96375; 36415; 83690; 84703; 85025; 80053; 81001; 74022; 74177; J3490; J1885; J2270; J1170; J2405; J7030; S0028